=== PATIENT | female | born 2000 | race Caucasian/White ===

== ENCOUNTER 2025-02-17 13:04 | Inpatient (IN) | payer MEDICAID, OTHER ==
[2025-02-17 13:21] VITALS: BMI 27.0
[2025-02-17] MEDS ORDERED: hydrALAZINE 20 MG/ML VIAL SLOW IVP PRN (13:50)
[2025-02-17 14:41] LABS: Protein, Urine Random Quant 14.0 mg/dL (1-14)
[2025-02-17 15:17] LABS: #Basophils 0.03 10x3/uL (0.0-0.2); #Eosinophils 0.05 10x3/uL (0.0-0.5); #Monocytes 0.59 10x3/uL (0.0-1.1); #Neutrophils 5.17 10x3/uL (1.5-8.4); %Basophils 0.4 % (0.0-2.0); %Eosinophils 0.7 % (0.0-6.0); %Lymphocytes 17.8 % (18.0-47.0); %Monocytes 8.3 % (0.0-10.0); %Neutrophils 72.4 % (40.0-75.0); Hematocrit 35.7 % (34.9-44.5); Hemoglobin 11.6 g/dL (12.0-15.5); Mean Corpuscular Hemoglobin 28.4 pg (27.0-33.0); Mean Corpuscular Volume 87.3 fL (81.6-98.3); Platelet Count 136 10x3/uL (150-450); Red Blood Cell (RBC) Count 4.09 10x6/uL (3.90-5.03); White Blood Cell (WBC) Count 7.14 10x3/uL (3.5-10.5)
[2025-02-17 15:39] LABS: ALT (SGPT) 24 U/L (Less than 34); AST (SGOT) 28 U/L (11-34); Albumin 2.9 g/dL (3.1-4.5); Alkaline Phosphatase 225 U/L (40-110); Anion Gap 11 mmol/L (10-20); BUN (Urea Nitrogen) 8 mg/dL (7.0-18.7); Bilirubin, Total 0.3 mg/dL (0.3-1.2); Calc. Creatinine Clearance 140 mL/min (70-130); Calcium 8.7 mg/dL (7.8-10.44); Carbon Dioxide 23 mmol/L (22-29); Chloride 109 mmol/L (98-107); Globulin 3.2 g/dL (2.4-3.5); Glucose 69 mg/dL (70-105); Potassium 4.1 mmol/L (3.5-5.1); Sodium 139 mmol/L (136-145)
[2025-02-17] MEDS ORDERED: Ondansetron PF 4 MG/2 ML Vial IVP PRN (16:24)
[2025-02-17] MEDS ORDERED: Methylergonovine 0.2 MG/ML VIAL IM PRN (16:25)
[2025-02-17] MEDS ORDERED: Diphenoxylate HCl/Atropine Tablet PO PRN (16:25)
[2025-02-17] MEDS ORDERED: Ibuprofen 800 MG TAB PO PRN (16:31)
[2025-02-17] MEDS ORDERED: Lidocaine 1% (PF) 30 ML VIAL SC PRN (16:31)
[2025-02-17] MEDS ORDERED: Oxytocin 30 units/NS 500 ML 500 ML IV SCH (16:45)
[2025-02-17 17:12] LABS: Syphilis Antibody Index 0.07 S/CO (<1.00 Non-Reactive)
[2025-02-17 17:13] LABS: Hep B Surf Ag - L&D Non-Reactive S/CO (NonReactive)
[2025-02-18] MEDS ORDERED: Acetaminophen 500 MG TAB PO PRN (01:17)
[2025-02-18] MEDS ORDERED: diphenhydrAMINE 50 MG/ML VIAL IVP PRN (16:48)
[2025-02-18] MEDS ORDERED: Ondansetron PF 4 MG/2 ML Vial IVP PRN (16:48)
[2025-02-18] MEDS ORDERED: fentaNYL 2 mcg/Ropivacaine 0.2% Epidural 100 ML CADD EPIDURAL SCH (17:00)
[2025-02-18] MEDS ORDERED: Communication Order-Pharmacy FS SCH (17:00)
[2025-02-18] MEDS: fentaNYL/Ropivacaine Epidural 100 ML ONE (17:07)
[2025-02-18 17:30] LABS: #Basophils Less than 0.03 10x3/uL (0.0-0.2); #Eosinophils Less than 0.03 10x3/uL (0.0-0.5); #Monocytes 0.81 10x3/uL (0.0-1.1); #Neutrophils 8.76 10x3/uL (1.5-8.4); %Basophils 0.1 % (0.0-2.0); %Eosinophils 0.2 % (0.0-6.0); %Lymphocytes 17.2 % (18.0-47.0); %Monocytes 7.0 % (0.0-10.0); %Neutrophils 75.2 % (40.0-75.0); Hematocrit 39.0 % (34.9-44.5); Hemoglobin 12.7 g/dL (12.0-15.5); Mean Corpuscular Hemoglobin 27.9 pg (27.0-33.0); Mean Corpuscular Volume 85.7 fL (81.6-98.3); Platelet Count 144 10x3/uL (150-450); Red Blood Cell (RBC) Count 4.55 10x6/uL (3.90-5.03); White Blood Cell (WBC) Count 11.63 10x3/uL (3.5-10.5)
[2025-02-18] MEDS: Acetaminophen 500 MG TAB PO SCH (23:01)
[2025-02-18] MEDS: Carboprost 250 MCG/ML AMP IM PRN (23:32)
[2025-02-18] MEDS: Tranexamic Acid 1,000 MG/10 ML VIAL IVP PRN (23:43)
[2025-02-18] MEDS: Oxytocin 30 units/NS 500 ML 500 ML IV SCH (23:45)
[2025-02-18] MEDS: Diphenoxylate HCl/Atropine Tablet PO PRN (23:48)
[2025-02-18] MEDS: Gentamicin 300 MG, Admixture Fee 1 EACH in Sodium Chloride 0.9% 100 ML IVPB SCH (23:49)
[2025-02-18] MEDS ORDERED: Lanolin Ointment 7 GM TUBE TOP PRN (23:54)
[2025-02-18] MEDS ORDERED: Preparation H Ointment 28 GM TUBE PR PRN (23:54)
[2025-02-18] MEDS ORDERED: Milk Of Magnesia 30 ML UDCUP PO PRN (23:54)
[2025-02-18] MEDS ORDERED: hydrALAZINE 20 MG/ML VIAL SLOW IVP PRN (23:54)
[2025-02-18] MEDS ORDERED: Bisacodyl 10 MG SUPP PR PRN (23:54)
[2025-02-19] MEDS ORDERED: Calcium Gluc 4.6 MEQ/10 ML (100 MG/ML) SLOW IVP PRN (00:36)
[2025-02-19] MEDS ORDERED: hydrALAZINE 20 MG/ML VIAL SLOW IVP PRN (00:36)
[2025-02-19] MEDS: Magnesium Sulfate 20 gm/500 ml 20 GM/500 ML BAG IVPB SCH (00:40)
[2025-02-19] MEDS: Furosemide 20 MG (2 mL) VIAL SLOW IVP SCH (00:45)
[2025-02-19] MEDS ORDERED: Oxytocin 30 units/NS 500 ML 500 ML IV SCH (01:00)
[2025-02-19 01:08] LABS: #Basophils 0.05 10x3/uL (0.0-0.2); #Eosinophils Less than 0.03 10x3/uL (0.0-0.5); #Monocytes 1.18 10x3/uL (0.0-1.1); #Neutrophils 15.03 10x3/uL (1.5-8.4); %Basophils 0.3 % (0.0-2.0); %Eosinophils 0.1 % (0.0-6.0); %Lymphocytes 10.0 % (18.0-47.0); %Monocytes 6.5 % (0.0-10.0); %Neutrophils 82.7 % (40.0-75.0); Hematocrit 34.5 % (34.9-44.5); Hemoglobin 11.6 g/dL (12.0-15.5); Mean Corpuscular Hemoglobin 28.8 pg (27.0-33.0); Mean Corpuscular Volume 85.6 fL (81.6-98.3); Platelet Count 147 10x3/uL (150-450); Red Blood Cell (RBC) Count 4.03 10x6/uL (3.90-5.03); White Blood Cell (WBC) Count 18.16 10x3/uL (3.5-10.5)
[2025-02-19] MEDS: Erythromycin Base 0.5% Oint 1 GM TUBE ONE (01:17)
[2025-02-19] MEDS: Boostrix 0.5 ML (Tdap) VIAL (>/=7 yrs of age) IM ONE (01:17)
[2025-02-19 01:23] LABS: ALT (SGPT) 21 U/L (Less than 34); AST (SGOT) 34 U/L (11-34); Albumin 2.5 g/dL (3.1-4.5); Alkaline Phosphatase 204 U/L (40-110); Anion Gap 13 mmol/L (10-20); BUN (Urea Nitrogen) 10 mg/dL (7.0-18.7); Bilirubin, Total 0.3 mg/dL (0.3-1.2); Calc. Creatinine Clearance 138 mL/min (70-130); Calcium 8.1 mg/dL (7.8-10.44); Carbon Dioxide 17 mmol/L (22-29); Chloride 109 mmol/L (98-107); Globulin 3.0 g/dL (2.4-3.5); Glucose 100 mg/dL (70-105); Potassium 3.3 mmol/L (3.5-5.1); Sodium 136 mmol/L (136-145)
[2025-02-19] MEDS: Clindamycin/D5W 900 MG in Premix 1 BAG IVPB SCH (05:30)
[2025-02-19] MEDS: Ibuprofen 800 MG TAB PO SCH (05:30)
[2025-02-19] MEDS: Furosemide 20 MG TAB PO SCH (09:21)
[2025-02-19] MEDS: Ferrous Sulfate 325 MG TAB PO SCH (19:11)
[2025-02-19] MEDS ORDERED: Gentamicin Sulfate 300 MG, Admixture Fee 1 EACH in Sodium Chloride 0.9% 100 ML IVPB SCH (23:30)
[2025-02-20] MEDS: Acetaminophen 325 MG TAB PO PRN (11:42)
[2025-02-21 11:27] VITALS: BP 124/80; TEMP 97.6
== END 2025-02-21 16:35 | disposition home or self-care (01) | DRG 805 ==
LOC: CSHLD/OP 13:04 → CSHLD 16:45 → CSHPED 02-20 00:21
PROVIDERS: ADMIT Family Medicine; ATTEND Family Medicine
PROC: 3E033VJ Introduction of Other Hormone into Peripheral Vein, Percutaneous Approach (ICD-10-PCS; 2025-02-17)
PROC: 10E0XZZ Delivery of Products of Conception, External Approach (ICD-10-PCS; principal; 2025-02-18)
PROC: 0KQM0ZZ Repair Perineum Muscle, Open Approach (ICD-10-PCS; 2025-02-18)
PROC: 10907ZC Drainage of Amniotic Fluid, Therapeutic from Products of Conception, Via Natural or Artificial Opening (ICD-10-PCS; 2025-02-18)
PROC: 3E02340 Introduction of Influenza Vaccine into Muscle, Percutaneous Approach (ICD-10-PCS; 2025-02-18)
PROC: 3E03329 Introduction of Other Anti-infective into Peripheral Vein, Percutaneous Approach (ICD-10-PCS; 2025-02-19)
DX: O14.04 Mild to moderate pre-eclampsia, complicating childbirth (principal); O41.1030 Infection of amniotic sac and membranes, unspecified, third trimester, not applicable or unspecified; Z37.0 Single live birth; Z3A.38 38 weeks gestation of pregnancy; O71.4 Obstetric high vaginal laceration alone; O62.2 Other uterine inertia; O86.12 Endometritis following delivery; Z23 Encounter for immunization
CPT/HCPCS: 36415; 51702; 80053; 82570; 84156; 85025; 86762; 86780; 86850; 86900; 86901; 87040; 87340; 88307; J0290; J0595; J1580; J1940; J2590; J3475; J3490; J7120